=== PATIENT | male | born 1965 | race Caucasian/White ===

== ENCOUNTER 2018-02-14 13:54 | Observation (INO) | payer OTHER, MEDICAID, SELFPAY ==
[2018-02-14] VITALS (8 sets, daily range): BP systolic 116–144; BP diastolic 69–87; PULSE 54–66; RESP 12–20; TEMP 35.6–36.8; O2SAT 97–100; BMI 26.5; BMI 27.5
[2018-02-14] MEDS: ONDANSETRON 4 MG/2 ML INJ IV ×2 (14:31→16:03)
[2018-02-14 14:42] LABS: Add Manual Diff / Slide Review NO; Basophils Percent Auto 0.4 % (0-2); Eosinophils Percent Auto 0.6 % (2-4); Hematocrit 46.7 % (41-53); Hemoglobin 16.4 g/dL (13.5-17.5); Lymphocytes Percent Auto 14.7 % (25-40); Mean Corpuscular HGB Conc 35.1 % (30-36); Mean Corpuscular Hemoglobin 31.3 PG (26-34); Mean Corpuscular Volume 89.2 fL (80-100); Monocytes Percent Auto 4.9 % (3-14); Neutrophils Absolute Auto 7900 /uL (1500-7000); Neutrophils Percent Auto 79.4 % (50-75); Platelet Count 209 X10^3/uL (150-400); Prothrombin Time 11.1 SECONDS (10.1-12.7); Red Blood Cell Count 5.23 X10^6/uL (4.5-5.9); Red Cell Distribution Width 13.2 % (11.6-14.8); White Blood Cell Count 9.9 X10^3/uL (4.5-11.0)
[2018-02-14 14:45] LABS: PTT Partial Thromboplastin Tim 30 SECONDS (26.4-36.2)
--- NOTE | 2018-02-14 14:49 | ED.ABDPAIN ---
HPI - Abdominal Pain <Zayda Mcnair PA-C - Last Filed: 02/14/18 20:00> General Chief Complaint: Abdominal Pain Stated Complaint: ABD CRAMP,FEVER Time Seen by Provider: 02/14/18 14:20 Source: patient Mode of arrival: ambulatory Limitations: no limitations History of Present Illness HPI narrative: This 52-year-old male comes in due to epigastric area pain and nausea. He states he awoke early this morning with chronic thought was ?indigestion?. He states that he took some liquid an acid and it seemed to help. He showered and fell back asleep. He states that he got up and ate breakfast, and after breakfast began to have pain again along with nausea. He had 1 episode of vomiting. He states that since then he has also felt warm and chilled intermittently and a bit lightheaded when he is up. He states he did eat wilder for breakfast which he typically does not. He also notes that he ate some fatty/greasy [place] food last night. He was in the [place] for the last few weeks and has been eating somewhat of a different diet/less produce than usual as he usually eats a healthy diet. He states that pain tends to stay in the epigastric area without radiation. No clear exacerbating or alleviating features. He denies any urinary symptoms or hematuria. He states that he did have a bowel movement yesterday. He takes psyllium, states he has had regular bowel movements but somewhat smaller and form drafter for the last couple of weeks. He denies any chest pain, dyspnea, pain in the extremities or any other new symptoms aside from above on systems review. No sick contacts as far as he knows. Related Data Home Medications Medication Instructions Recorded Confirmed aspirin 81 mg PO DAILY 02/14/18 02/14/18 cabergoline QWEEK 02/14/18 emtricitabine-tenofovir (TDF) 1 tab PO DAILY 02/14/18 02/14/18 [Truv[place]] levothyroxine [Levoxyl] 137 mcg PO DAILY 02/14/18 02/14/18 sertraline [Zoloft] 200 mg PO DAILY 02/14/18 02/14/18 Allergies Allergy/AdvReac Type Severity Reaction Status Date / Time No Known Drug Allergies Allergy Verified 02/14/18 14:06 Review of Systems <Zayda Mcnair PA-C - Last Filed: 02/14/18 20:00> Review of Systems All systems reviewed & are unremarkable except as noted in HPI and below Exam <Zayda Mcnair PA-C - Last Filed: 02/14/18 20:00> Narrative Exam Narrative: GENERAL APPEARANCE: Patient sitting comfortably, in no distress. HEENT: PERRL, EOMI, no scleral icterus NECK: Supple LUNGS: Clear to auscultation bilaterally. HEART: Rate and rhythm regular, normal S1 and S2, no S3 or S4. ABDOMEN: Soft, nondistended, bowel sounds present x 4 quadrants, no masses palpable, no hepatosplenomegaly. Moderate tenderness over the right medial and mid epigastrium without guarding or rebound. No tenderness elsewhere EXTREMITIES: No edema, no calf tenderness DERMATOLOGIC: No jaundice or exanthem NEUROLOGIC: Alert and oriented with normal speech and coordination Initial Vital Signs Initial Vital Signs: Vital Signs Temperature 96.1 F L 02/14/18 14:07 Pulse Rate 55 L 02/14/18 14:07 Respiratory Rate 20 02/14/18 14:07 Blood Pressure 130/87 02/14/18 14:07 Pulse Oximetry 99 02/14/18 14:07 <Westley Duvall DO - Last Filed: 02/15/18 09:41> Initial Vital Signs Initial Vital Signs: Vital Signs Temperature 96.1 F L 02/14/18 14:07 Pulse Rate 55 L 02/14/18 14:07 Respiratory Rate 20 02/14/18 14:07 Blood Pressure 130/87 02/14/18 14:07 Pulse Oximetry 99 02/14/18 14:07 Course <Zayda Mcnair PA-C - Last Filed: 02/14/18 20:00> Additional Information: Patient was feeling improved after medications and fluids. Reviewed ultrasound findings with on-call surgeon Dr. Ardon who gave option of admission for kiera tomorrow or outpatient f/u and scheduling. Patient elected admission and plan to proceed with surgery tomorrow. Clear liquid diet and prn pain medication ordered and Dr. Ardon will see him this evening. Orders Ordered: Hydromorphone HCl (Dilaudid) 0.5 mg IV Q2H PRN PRN Reason: Pain, Severe (7-10) Last Admin: 02/15/18 00:12 Dose: 0.5 mg Admin: 02/14/18 21:51 Dose: 0.5 mg Cefazolin Sodium/Dextrose (Ancef) 2 gm in 100 mls @ 200 mls/hr IV Q8HR BETTY Last Infusion: 02/14/18 22:36 Dose: 200 mls/hr Admin: 02/14/18 21:51 Dose: 200 mls/hr Dextrose/Sodium Chloride (Dextrose 5%-0.45% Ns) 1,000 mls @ 100 mls/hr IV CONT BETTY Last Admin: 02/15/18 07:55 Dose: 100 mls/hr Infusion: 02/15/18 07:51 Dose: 100 mls/hr Admin: 02/14/18 21:51 Dose: 100 mls/hr Lactated Ringer's (Lactated Ringers) 1,000 mls @ 42 mls/hr IV CONT BETTY Levothyroxine Sodium (Synthroid) 137 mcg PO 0600 [facility] Last Admin: 02/15/18 07:56 Dose: Not Given Mirtazapine (Remeron) 15 mg PO BEDTIME PRN PRN Reason: Sleep Ondansetron HCl (Zofran) 4 mg IV Q4HR PRN PRN Reason: Nausea And Vomiting Last Admin: 02/15/18 04:00 Dose: 4 mg Sertraline HCl (Zoloft) 200 mg PO BEDTIME BETTY Last Admin: 02/14/18 21:52 Dose: 200 mg Discontinued Medications Al Hydrox/Mg Hydrox/Simethicone 20 ml/ Lidocaine HCl 15 ml 0 ml PO NOW ONE Stop: 02/14/18 15:04 Last Admin: 02/14/18 15:13 Dose: 20 ml Enoxaparin Sodium (Lovenox) 40 mg SUBCUT NOW ONE Stop: 02/14/18 21:07 Last Admin: 02/14/18 21:52 Dose: 40 mg Hydromorphone HCl (Dilaudid) 0.5 mg IV NOW ONE Stop: 02/14/18 15:31 Last Admin: 02/14/18 15:55 Dose: 0.5 mg Sodium Chloride (Normal Saline 0.9%) 1,000 mls @ 1,000 mls/hr IV BOLUS ONE Stop: 02/14/18 16:02 Last Infusion: 02/14/18 16:03 Dose: 0 mls/hr Admin: 02/14/18 15:10 Dose: 1,000 mls/hr Ketorolac Tromethamine (Toradol) 30 mg IV NOW ONE Stop: 02/14/18 15:04 Last Admin: 02/14/18 15:10 Dose: 30 mg Ondansetron HCl (Zofran) 4 mg IV NOW ONE Stop: 02/14/18 14:30 Last Admin: 02/14/18 14:31 Dose: 4 mg Ondansetron HCl (Zofran) 4 mg IV NOW ONE Stop: 02/14/18 16:01 Last Admin: 02/14/18 16:03 Dose: 4 mg Pantoprazole Sodium (Protonix) 40 mg IV NOW ONE Stop: 02/14/18 15:04 Last Admin: 02/14/18 15:10 Dose: 40 mg Potassium Chloride (Klor-Con M10) 10 meq PO NOW ONE Stop: 02/14/18 15:11 Last Admin: 02/14/18 15:16 Dose: 10 meq Vital Signs - 8 hr 02/15/18 03:04 02/15/18 08:24 Temperature 98.1 F 98 F Pulse Rate 59 L 68 Respiratory Rate 20 16 Blood Pressure 119/55 L 124/78 Pulse Oximetry 98 97 <Westley Duvall, - Last Filed: 02/15/18 09:41> Orders Ordered: Hydromorphone HCl (Dilaudid) 0.5 mg IV Q2H PRN PRN Reason: Pain, Severe (7-10) Last Admin: 02/15/18 00:12 Dose: 0.5 mg Admin: 02/14/18 21:51 Dose: 0.5 mg Cefazolin Sodium/Dextrose (Ancef) 2 gm in 100 mls @ 200 mls/hr IV Q8HR [facility] Last Infusion: 02/14/18 22:36 Dose: 200 mls/hr Admin: 02/14/18 21:51 Dose: 200 mls/hr Dextrose/Sodium Chloride (Dextrose 5%-0.45% Ns) 1,000 mls @ 100 mls/hr IV CONT BETTY Last Admin: 02/15/18 07:55 Dose: 100 mls/hr Infusion: 02/15/18 07:51 Dose: 100 mls/hr Admin: 02/14/18 21:51 Dose: 100 mls/hr Lactated Ringer's (Lactated Ringers) 1,000 mls @ 42 mls/hr IV CONT BETTY Levothyroxine Sodium (Synthroid) 137 mcg PO 0600 [facility] Last Admin: 02/15/18 07:56 Dose: Not Given Mirtazapine (Remeron) 15 mg PO BEDTIME PRN PRN Reason: Sleep Ondansetron HCl (Zofran) 4 mg IV Q4HR PRN PRN Reason: Nausea And Vomiting Last Admin: 02/15/18 04:00 Dose: 4 mg Sertraline HCl (Zoloft) 200 mg PO BEDTIME BETTY Last Admin: 02/14/18 21:52 Dose: 200 mg Discontinued Medications Al Hydrox/Mg Hydrox/Simethicone 20 ml/ Lidocaine HCl 15 ml 0 ml PO NOW ONE Stop: 02/14/18 15:04 Last Admin: 02/14/18 15:13 Dose: 20 ml Enoxaparin Sodium (Lovenox) 40 mg SUBCUT NOW ONE Stop: 02/14/18 21:07 Last Admin: 02/14/18 21:52 Dose: 40 mg Hydromorphone HCl (Dilaudid) 0.5 mg IV NOW ONE Stop: 02/14/18 15:31 Last Admin: 02/14/18 15:55 Dose: 0.5 mg Sodium Chloride (Normal Saline 0.9%) 1,000 mls @ 1,000 mls/hr IV BOLUS ONE Stop: 02/14/18 16:02 Last Infusion: 02/14/18 16:03 Dose: 0 mls/hr Admin: 02/14/18 15:10 Dose: 1,000 mls/hr Ketorolac Tromethamine (Toradol) 30 mg IV NOW ONE Stop: 02/14/18 15:04 Last Admin: 02/14/18 15:10 Dose: 30 mg Ondansetron HCl (Zofran) 4 mg IV NOW ONE Stop: 02/14/18 14:30 Last Admin: 02/14/18 14:31 Dose: 4 mg Ondansetron HCl (Zofran) 4 mg IV NOW ONE Stop: 02/14/18 16:01 Last Admin: 02/14/18 16:03 Dose: 4 mg Pantoprazole Sodium (Protonix) 40 mg IV NOW ONE Stop: 02/14/18 15:04 Last Admin: 02/14/18 15:10 Dose: 40 mg Potassium Chloride (Klor-Con M10) 10 meq PO NOW ONE Stop: 02/14/18 15:11 Last Admin: 02/14/18 15:16 Dose: 10 meq Vital Signs - 8 hr 02/15/18 03:04 02/15/18 08:24 Temperature 98.1 F 98 F Pulse Rate 59 L 68 Respiratory Rate 20 16 Blood Pressure 119/55 L 124/78 Pulse Oximetry 98 97 MDM - Abdominal Pain <Zayda Mcnair PA-C - Last Filed: 02/14/18 20:00> Lab Data Result diagrams: 02/14/18 14:35 02/14/18 14:35 Lab Results 02/14/18 02/14/18 02/14/18 Range/Units 14:35 14:35 14:35 WBC 9.9 (4.5-11.0) X10^3/uL RBC 5.23 (4.5-5.9) X10^6/uL Hgb 16.4 (13.5-17.5) g/dL Hct 46.7 (41-53) % MCV 89.2 (80-100) fL MCH 31.3 (26-34) PG MCHC 35.1 (30-36) % RDW 13.2 (11.6-14.8) % Plt Count 209 (150-400) X10^3/uL Neut % (Auto) 79.4 H (50-75) % Lymph % (Auto) 14.7 L (25-40) % [place] % (Auto) 4.9 (3-14) % Eos % (Auto) 0.6 L (2-4) % Baso % (Auto) 0.4 (0-2) % Neut # (Auto) 7900 H (5100-4184) /uL PT 11.1 (10.1-12.7) SECONDS INR 1.0 (0.9-1.3) APTT 30 (26.4-36.2) SECONDS Sodium 144 (137-145) mmol/L Potassium 3.1 L (3.4-5.1) mmol/L Chloride 102 (98-107) mmol/L Carbon Dioxide 25 (22-32) mmol/L BUN 16 (9-20) mg/dL Creatinine 0.70 (0.66-1.25) mg/dL Estimated GFR > 60.0 (>60) mL/min BUN/Creatinine Ratio 22.9 H (6-22) Glucose 125 H (70-100) mg/dL Calcium 9.7 (8.4-10.2) mg/dL Total Bilirubin 0.6 (0.2-1.3) mg/dL AST 26 (17-59) IU/L ALT 37 (21-72) IU/L Alkaline Phosphatase 73 (38-126) U/L Troponin I (0.01-0.034) ng/mL Total Protein 8.0 (6.3-8.2) g/dL Albumin 4.7 (3.5-5.0) g/dL Globulin 3.3 (1.7-4.1) g/dL Albumin/Globulin Ratio 1.4 (1.0-2.8) Lipase 72 (23-300) U/L Urine RBC (0-5/HPF) Urine WBC (0-5/HPF) Amorphous Sediment Urine Bacteria (None) Urine Mucus (Negative) Ur Culture Indicated? Micro UA Comment 02/14/18 02/14/18 Range/Units 14:35 15:07 WBC (4.5-11.0) X10^3/uL RBC (4.5-5.9) X10^6/uL Hgb (13.5-17.5) g/dL Hct (41-53) % MCV (80-100) fL MCH (26-34) PG MCHC (30-36) % RDW (11.6-14.8) % Plt Count (150-400) X10^3/uL Neut % (Auto) (50-75) % Lymph % (Auto) (25-40) % [place] % (Auto) (3-14) % Eos % (Auto) (2-4) % Baso % (Auto) (0-2) % Neut # (Auto) (6713-3874) /uL PT (10.1-12.7) SECONDS INR (0.9-1.3) APTT (26.4-36.2) SECONDS Sodium (137-145) mmol/L Potassium (3.4-5.1) mmol/L Chloride (98-107) mmol/L Carbon Dioxide (22-32) mmol/L BUN (9-20) mg/dL Creatinine (0.66-1.25) mg/dL Estimated GFR (>60) mL/min BUN/Creatinine Ratio (6-22) Glucose (70-100) mg/dL Calcium (8.4-10.2) mg/dL Total Bilirubin (0.2-1.3) mg/dL AST (17-59) IU/L ALT (21-72) IU/L Alkaline Phosphatase (38-126) U/L Troponin I < 0.012 (0.01-0.034) ng/mL Total Protein (6.3-8.2) g/dL Albumin (3.5-5.0) g/dL Globulin (1.7-4.1) g/dL Albumin/Globulin Ratio (1.0-2.8) Lipase (23-300) U/L Urine RBC None seen (0-5/HPF) Urine WBC None seen (0-5/HPF) Amorphous Sediment 1+ Urine Bacteria None seen (None) Urine Mucus 1+ H (Negative) Ur Culture Indicated? Cult not indicated Micro UA Comment Not Reportable Point of care testing: Urine Dip Bedside Urine Glucose Negative Bedside Urine Bilirubin - Negative Bedside Urine Ketone ++ 40 Urine Specific [place] 1.025 Bedside Urine Occult Blood - Negative Bedside Urine pH 7.5 Bedside Urine Protein +/- 15 Bedside Urine Urobilinogen - Negative Bedside Urine Nitrite - Negative Bedside Urine Leukocytes - Negative Esterase Imaging Data US - abdomen: Radiologist's impression: [place] [address] Ultrasound Report Signed Patient: Yohannes Dunham MR#: [id number] : 1965 Acct:[id number] Age/Sex: 52 / M Date of Service: 02/14/18 Loc: ED Accession Number: [id number] Procedure: US abdomen complete Ordering Provider: Zayda Mcnair P.A-C PROCEDURE: US ABDOMEN COMPLETE INDICATIONS: PAIN TECHNIQUE: Real-time scanning was performed of the abdominal and retroperitoneal organs, with image documentation. COMPARISON: None. FINDINGS: Liver: Liver is enlarged with steatosis. Gallbladder: Multiple mobile echogenic foci are present within the gallbladder with a 13 mm focus in the gallbladder neck. Wall is borderline thickened measuring 2.8 mm. No pericholecystic fluid or sonographic Mitchell sign. Biliary ducts: Intrahepatic bile ducts are non-dilated. Extrahepatic bile duct caliber is not well visualized. Normal is 6-7 mm or less in diameter, or 10 mm or less post-cholecystectomy. Pancreas: Visualized portions of the pancreas are sonographically normal. Spleen: Spleen is normal in size and homogeneous in echotexture. Kidneys: Kidneys are normal in size and echotexture. Right kidney measures 10.9 cm long; left kidney measures 11.9 cm long. No hydronephrosis or nephrolithiasis. No solid masses. Aorta: Visualized aorta is normal in caliber at less than 3 cm. Iliacs: Proximal common iliac arteries are normal in caliber at less than 2.5 cm. IVC: Intrahepatic inferior vena cava is patent. Miscellaneous: No free abdominal fluid. IMPRESSION: 1. Cholelithiasis with borderline wall thickening. Developing cholecystitis cannot be excluded. Dictated by: Roxy Botello M.D. on 02/14/2018 at 16:45 Approved by: Roxy Botello M.D. on 02/14/2018 at 16:47 ECG Data Attestation: I personally reviewed and interpreted this ECG as follows: (Sinus bradycardia with rate 48, normal axis, inferior Q-wave) Prior ECG tracings: not available for review <Westley Duvall DO - Last Filed: 02/15/18 09:41> Lab Data Lab Results 02/14/18 02/14/18 02/14/18 Range/Units 14:35 14:35 14:35 WBC 9.9 (4.5-11.0) X10^3/uL RBC 5.23 (4.5-5.9) X10^6/uL Hgb 16.4 (13.5-17.5) g/dL Hct 46.7 (41-53) % MCV 89.2 (80-100) fL MCH 31.3 (26-34) PG MCHC 35.1 (30-36) % RDW 13.2 (11.6-14.8) % Plt Count 209 (150-400) X10^3/uL Neut % (Auto) 79.4 H (50-75) % Lymph % (Auto) 14.7 L (25-40) % [place] % (Auto) 4.9 (3-14) % Eos % (Auto) 0.6 L (2-4) % Baso % (Auto) 0.4 (0-2) % Neut # (Auto) 7900 H (4593-1468) /uL PT 11.1 (10.1-12.7) SECONDS INR 1.0 (0.9-1.3) APTT 30 (26.4-36.2) SECONDS Sodium 144 (137-145) mmol/L Potassium 3.1 L (3.4-5.1) mmol/L Chloride 102 (98-107) mmol/L Carbon Dioxide 25 (22-32) mmol/L BUN 16 (9-20) mg/dL Creatinine 0.70 (0.66-1.25) mg/dL Estimated GFR > 60.0 (>60) mL/min BUN/Creatinine Ratio 22.9 H (6-22) Glucose 125 H (70-100) mg/dL Calcium 9.7 (8.4-10.2) mg/dL Total Bilirubin 0.6 (0.2-1.3) mg/dL AST 26 (17-59) IU/L ALT 37 (21-72) IU/L Alkaline Phosphatase 73 (38-126) U/L Troponin I (0.01-0.034) ng/mL Total Protein 8.0 (6.3-8.2) g/dL Albumin 4.7 (3.5-5.0) g/dL Globulin 3.3 (1.7-4.1) g/dL Albumin/Globulin Ratio 1.4 (1.0-2.8) Lipase 72 (23-300) U/L Urine RBC (0-5/HPF) Urine WBC (0-5/HPF) Amorphous Sediment Urine Bacteria (None) Urine Mucus (Negative) Ur Culture Indicated? Micro UA Comment 02/14/18 02/14/18 Range/Units 14:35 15:07 WBC (4.5-11.0) X10^3/uL RBC (4.5-5.9) X10^6/uL Hgb (13.5-17.5) g/dL Hct (41-53) % MCV (80-100) fL MCH (26-34) PG MCHC (30-36) % RDW (11.6-14.8) % Plt Count (150-400) X10^3/uL Neut % (Auto) (50-75) % Lymph % (Auto) (25-40) % [place] % (Auto) (3-14) % Eos % (Auto) (2-4) % Baso % (Auto) (0-2) % Neut # (Auto) (1412-1560) /uL PT (10.1-12.7) SECONDS INR (0.9-1.3) APTT (26.4-36.2) SECONDS Sodium (137-145) mmol/L Potassium (3.4-5.1) mmol/L Chloride (98-107) mmol/L Carbon Dioxide (22-32) mmol/L BUN (9-20) mg/dL Creatinine (0.66-1.25) mg/dL Estimated GFR (>60) mL/min BUN/Creatinine Ratio (6-22) Glucose (70-100) mg/dL Calcium (8.4-10.2) mg/dL Total Bilirubin (0.2-1.3) mg/dL AST (17-59) IU/L ALT (21-72) IU/L Alkaline Phosphatase (38-126) U/L Troponin I < 0.012 (0.01-0.034) ng/mL Total Protein (6.3-8.2) g/dL Albumin (3.5-5.0) g/dL Globulin (1.7-4.1) g/dL Albumin/Globulin Ratio (1.0-2.8) Lipase (23-300) U/L Urine RBC None seen (0-5/HPF) Urine WBC None seen (0-5/HPF) Amorphous Sediment 1+ Urine Bacteria None seen (None) Urine Mucus 1+ H (Negative) Ur Culture Indicated? Cult not indicated Micro UA Comment Not Reportable Point of care testing: Urine Dip Bedside Urine Glucose Negative Bedside Urine Bilirubin - Negative Bedside Urine Ketone ++ 40 Urine Specific [place] 1.025 Bedside Urine Occult Blood - Negative Bedside Urine pH 7.5 Bedside Urine Protein +/- 15 Bedside Urine Urobilinogen - Negative Bedside Urine Nitrite - Negative Bedside Urine Leukocytes - Negative Esterase Discharge Plan Departure Patient Disposition: Admitted As Inpatient Clinical Impression: Cholecystitis Discharge Date/Time: 02/14/18 17:49 Interventions: ED Discharge Assessment Last Done: 02/14/18 17:48 Admit Date/Time: 02/14/18 17:34 Admit Provider: Kendrick Ardon <Westley Duvall DO - Last Filed: 02/15/18 09:41> Cosign ED Attending Cosignature Attestation: I was immediately available in the department for consultation. Documentation has been reviewed. I agree with assessment and plan.
[2018-02-14 14:50] LABS: Alanine Aminotransferase 37 IU/L (21-72); Albumin 4.7 g/dL (3.5-5.0); Albumin Globulin Ratio 1.4 (1.0-2.8); Alkaline Phosphatase 73 U/L (38-126); Aspartate Aminotransferase 26 IU/L (17-59); BUN Creatinine Ratio 22.9 (6-22); Bilirubin Total 0.6 mg/dL (0.2-1.3); Blood Urea Nitrogen 16 mg/dL (9-20); Calcium 9.7 mg/dL (8.4-10.2); Carbon Dioxide 25 mmol/L (22-32); Chloride 102 mmol/L (98-107); Estimated Glomerular Filt Rate > 60.0 mL/min (>60); Globulin 3.3 g/dL (1.7-4.1); Glucose 125 mg/dL (70-100); HEMOLYSIS < 15 (0-50); Lipase 72 U/L (23-300); Potassium 3.1 mmol/L (3.4-5.1); Sodium 144 mmol/L (137-145)
--- NOTE | 2018-02-14 15:04 | DI.US.S_ITS ---
PROCEDURE: US ABDOMEN COMPLETE INDICATIONS: PAIN TECHNIQUE: Real-time scanning was performed of the abdominal and retroperitoneal organs, with image documentation. COMPARISON: None. FINDINGS: Liver: Liver is enlarged with steatosis. Gallbladder: Multiple mobile echogenic foci are present within the gallbladder with a 13 mm focus in the gallbladder neck. Wall is borderline thickened measuring 2.8 mm. No pericholecystic fluid or sonographic Mitchell sign. Biliary ducts: Intrahepatic bile ducts are non-dilated. Extrahepatic bile duct caliber is not well visualized. Normal is 6-7 mm or less in diameter, or 10 mm or less post-cholecystectomy. Pancreas: Visualized portions of the pancreas are sonographically normal. Spleen: Spleen is normal in size and homogeneous in echotexture. Kidneys: Kidneys are normal in size and echotexture. Right kidney measures 10.9 cm long; left kidney measures 11.9 cm long. No hydronephrosis or nephrolithiasis. No solid masses. Aorta: Visualized aorta is normal in caliber at less than 3 cm. Iliacs: Proximal common iliac arteries are normal in caliber at less than 2.5 cm. IVC: Intrahepatic inferior vena cava is patent. Miscellaneous: No free abdominal fluid. IMPRESSION: 1. Cholelithiasis with borderline wall thickening. Developing cholecystitis cannot be excluded. Dictated by: Roxy Botello M.D. on 02/14/2018 at 16:45 Approved by: Roxy Botello M.D. on 02/14/2018 at 16:47
[2018-02-14 15:08] LABS: Troponin I < 0.012 ng/mL (0.01-0.034)
[2018-02-14] MEDS: SODIUM CHLORIDE 0.9% 1,000 ML 1000 ML IV (15:10)
[2018-02-14] MEDS: KETOROLAC 60 MG/2 ML VIAL 30 MG IV (15:10)
[2018-02-14] MEDS: PANTOPRAZOLE 40 MG VIAL IV (15:10)
[2018-02-14] MEDS: MAG HYDROX/ALUMINUM/SIMETH SUS 20 ML, LIDOCAINE VISCOUS 2% 15 ML PO (15:13)
[2018-02-14] MEDS: POTASSIUM CHLORIDE 10 MEQ TAB PO (15:16)
[2018-02-14] MEDS: HYDROMORPHONE 1 MG INJ 0.5 MG IV (15:55)
[2018-02-14 16:01] LABS: Amorphous Sediment Urine 1+; Bacteria Urine None Seen; Culture Indicated Urine Cult Not Indicated; Mucus Urine 1+ (Negative); RBC Urine None Seen (0-5/HPF); WBC Urine None Seen (0-5/HPF)
--- NOTE | 2018-02-14 21:11 | PM.HP.1 ---
History of Present Illness Date Patient Seen: 02/14/18 Time Patient Seen: 21:00 Chief complaint: ABD CRAMP,FEVER Narrative: The patient is a gentleman who had an episode of right upper quadrant pain with nausea early today. He took some Kaopectate and it seemed to improve so he had some breakfast which included wilder. He then developed severe right upper quadrant pain that prompted a visit to the emergency room. He has never had symptoms like this before. His pain was probably about an 8/10. He has never been jaundiced. No hematemesis. No blood in his stool. Patient History Medical History Anxiety (Acute) History of depression (Chronic) Hypothyroidism (Chronic) Microadenoma (Chronic) Surgical History Hx of fracture of wrist (Resolved) Family & Social History Family History: Reviewed 02/14/18 by Kendrick Ardon MD Social History: household members friend(s) Prior Living Arrangements House Safety & Behavioral: Feels Safe in Current Yes Environment Been Physically Hurt or No Threatened By a Person Suicidal Ideation Description None Tobacco & Substance use: Smoking Status Never smoker alcohol intake current alcohol intake frequency a few times a week Substance Use Type does not use Meds Home Medications Medication Instructions Recorded Confirmed Type aspirin 81 mg PO DAILY 02/14/18 02/14/18 History emtricitabine-tenofovir (TDF) 1 tab PO DAILY 02/14/18 02/14/18 History [Truvada] levothyroxine [Levoxyl] 137 mcg PO DAILY 02/14/18 02/14/18 History sertraline [Zoloft] 200 mg PO DAILY 02/14/18 02/14/18 History Allergies Allergy/AdvReac Type Severity Reaction Status Date / Time No Known Drug Allergies Allergy Verified 02/14/18 14:06 Review of Systems Review of Systems Patient denies double vision pain is eyes earaches or sore throat. No trouble swallowing. No cough cold or asthma. No chest pain. No heart problems. No black or bloody bowel movements. No seizures or blackouts. Does suffer from anxiety and depression is on Zoloft. He takes medication to help him sleep sometimes. mirtaz. He occasionally uses Truvada but has not been using it regularly lately. 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 He never had breast development a never had any kind of milk drainage. Medication he is taken has reduced it. He is also hypothyroid on levothyroxine. No unusual bruising or bleeding. Exam Vital Signs (past 8 hours): - 02/14/18 14:07 02/14/18 15:00 02/14/18 15:29 Temperature 96.1 F L Pulse Rate 55 L 58 L 54 L Respiratory Rate 20 16 12 Blood Pressure 130/87 Blood Pressure [Right Arm] 124/74 124/74 Pulse Oximetry 99 100 02/14/18 16:00 02/14/18 16:30 02/14/18 17:45 Temperature Pulse Rate 56 L 56 L 55 L Respiratory Rate 14 15 15 Blood Pressure Blood Pressure [Right Arm] 132/82 116/69 124/80 Pulse Oximetry 98 100 99 02/14/18 18:08 Temperature 97.7 F Pulse Rate 60 Respiratory Rate 14 Blood Pressure 144/82 H Blood Pressure [Right Arm] Pulse Oximetry 98 Oxygen Delivery Method Room Air Narrative Exam Narrative: Operative gentleman appears appropriate weight in no apparent distress. Somewhat hirsute except he is scalp is bald/shaven. Eyes are nonicteric. Pupils equal round reactive to light. Conjunctivae are pink. No swelling of the lids. Ears without lesion. Nasal septum is midline. No visible polyps. Oral mucosa is pink and moist. No open lesions. Teeth are intact. Tonsils are not enlarged. He has no nodes in the neck or supraclavicular areas. Trachea is midline mobile. Thyroid is not enlarged. His lungs are clear to auscultation without rales or rhonchi an equal percussion. Heart regular rate and rhythm without murmur gallop. No bruit in the neck. No heave disciplinary hearing officer thrill. His abdomen is scaphoid soft nontender without mass. No ventral hernias. Liver and spleen are not enlarged. His extremities without cyanosis clubbing or edema. Left wrist has a scar on the volar surface. Pedal pulses dorsalis pedis are 2+. The patient is alert and oriented x3. Speech rate and content are appropriate. Affect is appropriate. Patient does not have gynecomastia. Objective ECG Impression: Ultrasound consistent with a borderline thickened gallbladder with stones in the neck. No ductal dilatation seen. Labs Result Diagrams: 02/14/18 14:35 02/14/18 14:35 Labs: Laboratory Results - last 24 hr 02/14/18 02/14/18 02/14/18 14:35 14:35 14:35 WBC 9.9 RBC 5.23 Hgb 16.4 Hct 46.7 MCV 89.2 MCH 31.3 MCHC 35.1 RDW 13.2 Plt Count 209 Neut % (Auto) 79.4 H Lymph % (Auto) 14.7 L [place] % (Auto) 4.9 Eos % (Auto) 0.6 L Baso % (Auto) 0.4 Neut # (Auto) 7900 H PT 11.1 INR 1.0 APTT 30 Sodium 144 Potassium 3.1 L Chloride 102 Carbon Dioxide 25 BUN 16 Creatinine 0.70 Estimated GFR > 60.0 BUN/Creatinine Ratio 22.9 H Glucose 125 H Calcium 9.7 Total Bilirubin 0.6 AST 26 ALT 37 Alkaline Phosphatase 73 Troponin I Total Protein 8.0 Albumin 4.7 Globulin 3.3 Albumin/Globulin Ratio 1.4 Lipase 72 Urine RBC Urine WBC Amorphous Sediment Urine Bacteria Urine Mucus Ur Culture Indicated? Micro UA Comment 02/14/18 02/14/18 14:35 15:07 WBC RBC Hgb Hct MCV MCH MCHC RDW Plt Count Neut % (Auto) Lymph % (Auto) [place] % (Auto) Eos % (Auto) Baso % (Auto) Neut # (Auto) PT INR APTT Sodium Potassium Chloride Carbon Dioxide BUN Creatinine Estimated GFR BUN/Creatinine Ratio Glucose Calcium Total Bilirubin AST ALT Alkaline Phosphatase Troponin I < 0.012 Total Protein Albumin Globulin Albumin/Globulin Ratio Lipase Urine RBC None seen Urine WBC None seen Amorphous Sediment 1+ Urine Bacteria None seen Urine Mucus 1+ H Ur Culture Indicated? Cult not indicated Micro UA Comment Not Reportable Assessment & Plan Plan: Assessment/Plan Narrative: Patient with cholelithiasis and probably early cholecystitis. Acutely symptomatic. I have recommended cholecystectomy. I talked to him about laparoscopic cholecystectomy with possible intraoperative cholangiogram. Risks of bleeding infection hernia at the umbilicus bowel, bile leakage, possible need for an ERCP, injury to internal organs and ducts which could require major operation to repair were all discussed. He appears to understand and wishes to proceed. Will continue his medication for his hypothyroidism and his depression/anxiety. We will also continue his medication for his microadenoma of his pituitary if necessary. Will begin DVT prophylaxis with Lovenox this evening. Have patient sign consent. Quality VTE Deep Vein Thrombosis/Pulmonary Embolism Present on Admission: No
[2018-02-14] MEDS: HYDROMORPHONE 0.5 MG INJ IV (21:51)
[2018-02-14] MEDS: CEFAZOLIN 2 GM/100 ML FROZ.PIGGY IV (21:51)
[2018-02-14] MEDS: DEXTROSE 5%-0.45% NS 1,000 ML 100 ML IV (21:51)
[2018-02-14] MEDS: SERTRALINE 50 MG TABLET 200 MG PO (21:52)
[2018-02-14] MEDS: ENOXAPARIN 40 MG/0.4 ML SYRINGE SUBCUT (21:52)
[2018-02-15] VITALS (19 sets, daily range): BP systolic 86–131; BP diastolic 45–90; PULSE 59–92; RESP 10–20; TEMP 36.6–37.3; O2SAT 93–98; BMI 27.5
--- NOTE | 2018-02-15 | PATH_ITS ---
[facility] Accession Number: [id number] . 01 Material submitted: . GALLBLADDER . 02 Diagnosis: Gallbladder, Cholecystectomy: Chronic active cholecystitis with cholelithiasis. Negative for dysplasia or malignancy. I02/19/2018 . 02 Electronically signed: . Alejandro Dye MD, PhD, Pathologist NPI- [id number] . 01 Gross description: . Received in formalin labeled Yohannes Dunham, gallbladder is a 9.5 x 2.5 x 2.2 cm gallbladder. The serosa is green-yellow shaggy and is received disrupted near the neck. Adjacent to the cystic duct margin is a brown lymph node, which is 1.0 x 0.4 x 0.3 cm. The lymph node is bisected. Opening the gallbladder reveals a velvety green-brown mucosa and numerous green-yellow irregularly shaped fragmented calculi. The calculi range from 0.1 cm to 1.6 cm in greatest dimension. The gallbladder wall averages 0.2 cm in thickness. Groover And Striper Operator sections are submitted as A1 to include the cystic duct margin and the bisected lymph node. A1 has five pieces. ([id number]) /[facility] . 02 Pathologist provided ICD-10: K80.60 . 02 CPT . 908537 Performed at: 01 [facility] [address], [place], [place] [id number] MD Sudheer Sapp MD Phone: [phone] Performed at: 02 [facility] [address] [place], [place] [id number] MD Callie Starks MD Phone: [phone]
[2018-02-15] MEDS: HYDROMORPHONE 0.5 MG INJ IV (00:12)
[2018-02-15] MEDS: ONDANSETRON 4 MG/2 ML INJ IV (04:00)
[2018-02-15] MEDS: DEXTROSE 5%-0.45% NS 1,000 ML 100 ML IV (07:55)
--- NOTE | 2018-02-15 09:03 | CM.DANOTE ---
DCP: Case received, EMR reviewed and met with patient. Introduced self and role. DCP template completed with information currently available. Patient is a 52 year old male who admitted yesterday evening to the care of the hospitalist team. PCP: Dr. Bradford. Payer: confirmed: [facility] [place]/Medicaid Patient came to hospital via family vehicle with symptoms of right upper quadrant pain. Patient is to have Laprascopic Cholecystection procedure today. Patient alert and oriented. Lives in [place], with friend. Is independent, self employed. P: DCP to continue to follow. Patient should be able to return home when stable. Katherine Tolbert RN/Propulsion Machinery Service Engineer
--- NOTE | 2018-02-15 09:29 | PM.PREOP ---
Pre-operative Note Interval Note Pre-op Check: Yes History & Physical Reviewed by Physician and Yes Exam Performed Changes: No
[2018-02-15] MEDS: LACTATED RINGERS 1,000 ML 42 ML IV ×2 (10:40→12:33)
[2018-02-15] MEDS: CEFAZOLIN 2 GM/100 ML FROZ.PIGGY IV (10:45)
--- NOTE | 2018-02-15 11:22 | SUR.OPER ---
Supine on padded OR bed, head on pillow, safety belt at thigh, left arm padded and tucked at side. Right arm secured on padded arm oard <90 degrees abduction. Legs uncrossed. Extra tape over blanket to secure lower legs.
[2018-02-15] MEDS: BUPIVACAINE 0.5% (PF) VIAL 30 ML INJ (11:31)
--- NOTE | 2018-02-15 12:14 | PM.OP.1 ---
Operative Date/Time/Diagnoses Date of procedure: 02/15/18 Time of procedure: 12:14 Pre-op diagnosis: Cholelithiasis cholecystitis. Post-op diagnosis: other (Cholelithiasis acute hemorrhagic cholecystitis) Procedure & Clinicians Procedure: Laparoscopic cholecystectomy Same procedure as scheduled: Yes Indications: Right upper quadrant pain gallstones Surgeon: Kendrick Ardon Click Yes if Unassisted: Yes Anesthesia Type: General Operative Notes Findings: Hemorrhagic acutely inflamed gallbladder with evidence of early hydrops Closure Type: primary Specimen(s): other (Gallbladder) Implants & Drains: None Estimated Blood Loss (mL): 30 Blood products transfused: none Procedure in detail: The patient was placed supine on the operating room table and underwent general endotracheal anesthesia. There prepped and draped in the usual fashion. Local anesthetic was infiltrated beneath the umbilicus and an incision made in the infraumbilical fold. It was carried down to the level of the peritoneum which was opened under direct vision. Stay sutures of 0 Polysorb were placed in the fascia. An Nii cannula was inserted and the abdomen was insufflated. The patient was repositioned and local anesthetic was infiltrated again beneath the right costal margin and 3 small 5 mm ports were inserted. The gallbladder was identified as an acutely inflamed hemorrhagic structure. I inserted a needle to aspirated to take some of the tension off of it so that we could grasp it. I was true approximately 40 cc of pale green yellow fluid. The gallbladder was then grasped and elevated. Omentum was adherent to its surface this was taken down bluntly due to the cautery cord not being attached. Dissection was begun near the end of the gallbladder. Therefore structure from each other. The 1st was tissue that could have contained a vessel that had 3 clips placed across it was divided leaving 2 in the patient. The cystic duct was identified and from surrounding structures. Four clips were placed on it and it was divided leaving 3 in the patient. The artery appeared to bifurcate and I took the branches separately with 3 clips applied each side dividing leaving 2 in the patient. I then dissected the gallbladder from its bed in the liver. Cautery was used to control bleeding. The gallbladder was detached and placed in a bag. It was removed through the umbilical port. There were multiple small and large stones in it. The right upper quadrant was irrigated and suctioned free of fluid. Meticulous hemostasis was achieved.. The ports were all removed. Stay sutures at the umbilicus were tied after placing an additional stitch of 2 0 PDS between the Polysorb sutures. The wounds were irrigated and 4 0 Vicryl interrupted subcuticular stitches were used to close the skin. Mastisol Steri-Strips were applied. Band-Aids were applied. The patient was awakened and taken to recovery area in good condition. Complications: none Condition: stable Disposition: PACU
--- NOTE | 2018-02-15 14:03 | PC.NURSE ---
Pt returned from surgery following lap cholecystectomy.Has 4 bandaids on abdomen CDI. Denies nausea or pain. Taking occ sips of fluids. O2 sats = 94% on RA. Family in room with pt.
--- NOTE | 2018-02-15 17:32 | P.DS_ITS ---
History of Present Illness Date Patient Seen: 02/15/18 Time Patient Seen: 17:31 Chief complaint: ABD CRAMP,FEVER Narrative: The patient is a gentleman who had an episode of right upper quadrant pain with nausea early today. He took some Kaopectate and it seemed to improve so he had some breakfast which included wilder. He then developed severe right upper quadrant pain that prompted a visit to the emergency room. He has never had symptoms like this before. His pain was probably about an 8/ 10. He has never been jaundiced. No hematemesis. No blood in his stool. Discharge Providers Date of admission: 02/14/18 17:34 Consults: 02/14/18 17:57 Consult to General Surgery Routine Comment: Consulting Provider: Kendrick Ardon Reason for consultation: kiera Has provider been notified: Yes Discharge provider: Kendrick Ardon MD Discharge Date: 02/15/18 Summary Discharge Diagnosis: Acute hemorrhagic cholecystitis with cholelithiasis. Prolactin producing microadenoma of the pituitary gland Chronic anxiety Chronic depression Chronic hypothyroidism Hospital Course: The patient was admitted and given fluid and IV antibiotics. He was taken the operating room where he was found to have acute hemorrhagic cholecystitis. He may have had an obstruction of his cystic duct. Postoperatively he tolerated a diet without nausea and was interested in being discharged. He was discharged to follow up in the office with instructions. Status at Discharge Cognitive/behavioral status at discharge: Normal Functional status at discharge: independent ambulation Overall status at discharge: patient is not back to baseline (Recovering from an operation) Time Spent with Patient Less than 30 minutes Exam Vital Signs (past 8 hours): - 02/15/18 10:40 02/15/18 12:23 02/15/18 12:28 Temperature 99.2 F 98.5 F Pulse Rate 72 72 72 Respiratory Rate 16 12 12 Blood Pressure 130/80 87/46 L 86/45 L Pulse Oximetry 96 94 93 02/15/18 12:33 02/15/18 12:38 02/15/18 12:43 Temperature Pulse Rate 70 72 76 Respiratory Rate 12 12 12 Blood Pressure 86/47 L 89/53 L 94/54 L Pulse Oximetry 93 93 96 02/15/18 12:48 02/15/18 12:53 02/15/18 12:59 Temperature Pulse Rate 90 82 88 Respiratory Rate 10 L 12 14 Blood Pressure 94/59 L 99/58 L 106/60 Pulse Oximetry 96 93 95 02/15/18 13:03 02/15/18 13:08 02/15/18 13:25 Temperature 98.6 F 98 F Pulse Rate 80 88 90 Respiratory Rate 14 14 18 Blood Pressure 100/62 108/63 116/66 Pulse Oximetry 94 96 94 02/15/18 13:55 02/15/18 14:25 02/15/18 15:25 Temperature 98 F 98.2 F 98.3 F Pulse Rate 92 H 91 H 79 Respiratory Rate 18 18 18 Blood Pressure 128/90 119/76 105/77 Pulse Oximetry 96 96 02/15/18 16:30 Temperature 98.5 F Pulse Rate 72 Respiratory Rate 16 Blood Pressure 114/67 Pulse Oximetry 96 Oxygen Delivery Method Room Air Oxygen Flow Rate 95 Objective Labs Result Diagrams: 02/14/18 14:35 02/14/18 14:35 Discharge Plan Discharge Plan Patient Disposition: Home Discharge comment: Your operation went well. You should take it easy for the next few days. Gradually resume a normal activity level as tolerated. However do not exercise run bicycle lift over 10 lb or straining for the next 4 weeks. If you have any problems or need to reach a doctor please call our office at [phone]. If it is after hours hold until the page in tying machine operator lumber picks up. Discharge Med Rec/Prescriptions Prescriptions: New oxycodone-acetaminophen [Percocet] 5-325 mg tablet See Label Instructions .ROUTE .COMPLEX PRN (Reason: painful procedure) Qty: 14 RF: 0 Continue levothyroxine [Levoxyl] 137 mcg Tablet 137 mcg PO DAILY RF: 0 sertraline [Zoloft] 100 mg Tablet 200 mg PO DAILY RF: 0 aspirin 81 mg Tablet,Chewable 81 mg PO DAILY RF: 0 emtricitabine-tenofovir (TDF) 200-300 mg tablet 1 tab PO DAILY RF: 0 cabergoline QWEEK RF: 0 Follow up/Referrals: Kendrick Ardon MD [Physician] - (Call our office and request an appointment to see me in about 10 days from today. Our office is open on Friday, the day after [place]) Provider Discharge Instructions Diet: Diet as Tolerated Activity: Avoid lifting over 10 lb or straining for about 4 weeks. He may walk. Do not drive until you are pain free off medication. Avoid a pool or tub for at least 2 weeks. You may remove your Band-Aids and shower in 2 days. Leave the tape under the Band-Aids fall off on its own. Skin/Wound/Dressing Care Report to your healthcare provider any signs of infection, such as:: chills, fever, night sweats, increased pain, unusual drainage and unusual redness Dressing: You can remove the Band-Aids in 2 days Discharge Data Attending Provider: Kendrick Ardon Admit Date/Time: 02/14/18 17:34 Quality VTE Deep Vein Thrombosis/Pulmonary Embolism Present on Admission: No
== END 2018-02-15 18:17 | disposition home or self-care (01) ==
LOC: ED 17:24 → AC 02-15 08:35
PROVIDERS: Emergency Medicine; Admitting Provider Specialist; Emergency Provider Internal Medicine; Visit Provider Specialist
PROC: 0FT44ZZ Resection of Gallbladder, Percutaneous Endoscopic Approach (ICD-10-PCS; CPT 47562; principal; 2018-02-15 11:00)
DX: K80.00 Calculus of gallbladder with acute cholecystitis without obstruction (principal); R10.11 Right upper quadrant pain; K82.1 Hydrops of gallbladder; F41.9 Anxiety disorder, unspecified; E03.9 Hypothyroidism, unspecified
CPT/HCPCS: 47562; 36591; 76700; 80053; 81003; 81015; 83690; 84484; 85025; 85610; 85730; 93005; 96361; 96374; 96375; 96376; 99283; 99284; G0378; C9113; J0690; J1100; J1170; J1650; J1885; J2250; J2405; J2704; J3010